=== PATIENT | male | born 1980 | race African-American/Black ===

== ENCOUNTER 2016-08-11 19:58 | Emergency (ER) | payer MEDICAID ==
[~2016-08-11] VITALS: Ht 193 cm; Wt 98.0 kg
[2016-08-11] MEDS ORDERED: KETOROLAC 60MG/2ML VIAL IM ONE (21:30)
[2016-08-11] MEDS ORDERED: HYDROCODONE/ACETAMINOPHEN 5/325MG TABLET PO ONE (23:45)
[2016-08-11 23:48] VITALS: BP 120/69
== END 2016-08-12 00:56 | disposition home or self-care (01) ==
LOC: ER 19:59
DX: S40.021A Contusion of right upper arm, initial encounter (principal); F17.200 Nicotine dependence, unspecified, uncomplicated; W22.8XXA Striking against or struck by other objects, initial encounter; Y93.89 Activity, other specified; Y92.89 Other specified places as the place of occurrence of the external cause; Y99.8 Other external cause status
CPT/HCPCS: 29125; 73080; 73090; 73110; 73130; 96372; 99284; J1885

== ENCOUNTER 2016-09-21 16:28 | Emergency (ER) | payer SELFPAY ==
[~2016-09-21] VITALS: Ht 193 cm; Wt 104.0 kg
[2016-09-21 16:57] VITALS: BP 109/59
== END 2016-09-22 02:06 | disposition left against medical advice (07) ==
LOC: ER 16:29
DX: M25.521 Pain in right elbow (principal); Z98.890 Other specified postprocedural states